=== PATIENT | male | born 2000 | race Caucasian/White ===

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

== ENCOUNTER 2020-03-30 13:45 | Emergency (ER) | payer SELFPAY ==
[~2020-03-30] VITALS: Ht 170.1 cm; Wt 61.2 kg
[2020-03-30] MEDS ORDERED: NAPROSYN500 MG PO (14:23)
[2020-03-30] MEDS ORDERED: AMOXICILLIN500 M2 PO (14:23)
== END 2020-03-30 14:34 | disposition home or self-care (01) ==
LOC: ED 13:45
DX: H66.92 Otitis media, unspecified, left ear (principal); K08.89 Other specified disorders of teeth and supporting structures

== ENCOUNTER 2021-04-04 08:47 | Emergency (ER) | payer SELFPAY ==
[~2021-04-04] VITALS: Ht 170.1 cm; Wt 65.8 kg
[~2021-04-04 08:47] MED LIST changes: +AMOXICILLIN500 M2 PO; +NAPROSYN500 MG PO
== END 2021-04-04 09:15 | disposition home or self-care (01) ==
LOC: ED 08:47
DX: A08.4 Viral intestinal infection, unspecified (principal); R11.0 Nausea; Z79.899 Other long term (current) drug therapy

== ENCOUNTER 2021-06-17 18:30 | Emergency (ER) | payer SELFPAY ==
[~2021-06-17] VITALS: Ht 170.1 cm; Wt 61.2 kg
== END 2021-06-18 00:17 | disposition left against medical advice (07) ==
LOC: ED 18:30
DX: M25.562 Pain in left knee (principal); Z53.21 Procedure and treatment not carried out due to patient leaving prior to being seen by health care provider

== ENCOUNTER 2021-07-20 09:19 | Emergency (ER) | payer SELFPAY ==
[~2021-07-20] VITALS: Ht 170.1 cm; Wt 56.7 kg
== END 2021-07-20 10:53 | disposition short-term general hospital (02) ==
LOC: ED 09:19
DX: T22.10XA Burn of first degree of shoulder and upper limb, except wrist and hand, unspecified site, initial encounter (principal); T23.101A Burn of first degree of right hand, unspecified site, initial encounter; T21.11XA Burn of first degree of chest wall, initial encounter; T20.17XA Burn of first degree of neck, initial encounter; T31.22 Burns involving 20-29% of body surface with 20-29% third degree burns; X08.8XXA Exposure to other specified smoke, fire and flames, initial encounter; Y93.89 Activity, other specified; Y92.89 Other specified places as the place of occurrence of the external cause; Y99.8 Other external cause status

== ENCOUNTER → 2021-10-06 | Outpatient (CLI) | payer OTHER | END | disposition home or self-care (01) | LOC: COVID19 16:44 | PROVIDERS: ATTEND Internal Medicine | DX: U07.1 COVID-19 (principal) ==

== ENCOUNTER 2022-03-24 13:27 | Emergency (ER) | payer SELFPAY ==
[~2022-03-24] VITALS: Ht 170.1 cm; Wt 61.2 kg
[2022-03-24] MEDS ORDERED: AVPAK AZITHROM250 M1 PO (14:07)
== END 2022-03-24 14:49 | disposition home or self-care (01) ==
LOC: ED 13:27
DX: J01.00 Acute maxillary sinusitis, unspecified (principal)

== ENCOUNTER 2022-08-20 18:16 | Emergency (ER) | payer SELFPAY ==
[~2022-08-20] VITALS: Wt 63.5 kg
[~2022-08-20 18:16] MED LIST changes: +AVPAK AZITHROM250 M1 PO
[2022-08-20] MEDS ORDERED: PENICILLIN-VK500 MG PO (20:15)
== END 2022-08-20 20:30 | disposition home or self-care (01) ==
LOC: ED 18:16
DX: K04.7 Periapical abscess without sinus (principal); F17.200 Nicotine dependence, unspecified, uncomplicated

== ENCOUNTER 2023-07-20 16:12 | Emergency (ER) | payer SELFPAY ==
[~2023-07-20] VITALS: Ht 175.2 cm; Wt 63.5 kg
[~2023-07-20 16:12] MED LIST changes: +PENICILLIN-VK500 MG PO
== END 2023-07-20 19:10 | disposition home or self-care (01) ==
LOC: ED 16:12
DX: S60.221A Contusion of right hand, initial encounter (principal); W20.8XXA Other cause of strike by thrown, projected or falling object, initial encounter; Y93.89 Activity, other specified; Y92.89 Other specified places as the place of occurrence of the external cause; Y99.8 Other external cause status

== ENCOUNTER 2024-01-17 17:37 | Emergency (ER) | payer SELFPAY ==
[~2024-01-17] VITALS: Ht 173.7 cm; Wt 65.8 kg
[2024-01-17] MEDS ORDERED: ACETAMINOPHEN 325 MG TAB PO ONE (17:50)
== END 2024-01-17 18:40 | disposition home or self-care (01) ==
LOC: ED 17:37
DX: S63.601A Unspecified sprain of right thumb, initial encounter (principal); W22.8XXA Striking against or struck by other objects, initial encounter; Y93.H2 Activity, gardening and landscaping; Y92.096 Garden or yard of other non-institutional residence as the place of occurrence of the external cause; Y99.8 Other external cause status

== ENCOUNTER 2024-02-22 20:40 | Emergency (ER) | payer SELFPAY ==
[~2024-02-22] VITALS: Ht 170.1 cm; Wt 63.5 kg
[2024-02-22] MEDS ORDERED: Albuterol Sulf/Ipratropium 3 ML VIAL NEB ONE (21:05)
[2024-02-22] MEDS ORDERED: AMOXICILLIN500 M3 PO (22:53)
[2024-02-22] MEDS ORDERED: AMOXICILLIN 500 MG CAP PO ONE (23:00)
[2024-02-22] MEDS ORDERED: PROAIR RESPICL90 MCG INH (23:00)
== END 2024-02-22 23:10 | disposition home or self-care (01) ==
LOC: ED 20:40
DX: J01.90 Acute sinusitis, unspecified (principal); Z20.822 Contact with and (suspected) exposure to COVID-19

== ENCOUNTER 2024-03-21 19:37 | Emergency (ER) | payer SELFPAY ==
[~2024-03-21] VITALS: Ht 170.1 cm; Wt 63.5 kg
[~2024-03-21 19:37] MED LIST changes: +AMOXICILLIN500 M3 PO; +PROAIR RESPICL90 MCG INH
[2024-03-21] MEDS ORDERED: Ketorolac Tromethamine 30 MG/ML VIAL IM ONE (20:10)
[2024-03-21] MEDS ORDERED: NAPROXEN250 MG PO (20:12)
== END 2024-03-21 20:30 | disposition home or self-care (01) ==
LOC: ED 19:37
DX: S93.402A Sprain of unspecified ligament of left ankle, initial encounter (principal); Z79.2 Long term (current) use of antibiotics; Z79.899 Other long term (current) drug therapy; X50.1XXA Overexertion from prolonged static or awkward postures, initial encounter; Y93.89 Activity, other specified; Y92.89 Other specified places as the place of occurrence of the external cause; Y99.8 Other external cause status

== ENCOUNTER 2024-11-12 16:14 | Emergency (ER) | payer MEDICAID ==
[~2024-11-12] VITALS: Ht 170.1 cm; Wt 63.5 kg
[~2024-11-12 16:14] MED LIST changes: +NAPROXEN250 MG PO
[2024-11-12] MEDS ORDERED: AMOX-CLAV 875-1 EACH PO (17:35)
[2024-11-12] MEDS ORDERED: Acetaminophen/Hydrocodone HP 10/325 PO ONE (17:35)
[2024-11-12] MEDS ORDERED: MELOXICAM15 MG PO (17:35)
[2024-11-12] MEDS ORDERED: Amoxicillin/Clavulanate Pota 875 MG TAB PO ONE (17:35)
== END 2024-11-12 17:54 | disposition home or self-care (01) ==
LOC: ED 16:14
DX: S39.011A Strain of muscle, fascia and tendon of abdomen, initial encounter (principal); K04.7 Periapical abscess without sinus; R22.0 Localized swelling, mass and lump, head; F17.210 Nicotine dependence, cigarettes, uncomplicated; X50.0XXA Overexertion from strenuous movement or load, initial encounter; Y93.89 Activity, other specified; Y92.89 Other specified places as the place of occurrence of the external cause; Y99.8 Other external cause status

== ENCOUNTER 2025-01-23 20:19 | Emergency (ER) | payer MEDICAID ==
[~2025-01-23] VITALS: Ht 170.1 cm; Wt 63.5 kg
[~2025-01-23 20:19] MED LIST changes: +AMOX-CLAV 875-1 EACH PO; +MELOXICAM15 MG PO
[2025-01-23] MEDS ORDERED: CYCLOBENZAPRINE10 MG PO (20:36)
[2025-01-23] MEDS ORDERED: Ketorolac Tromethamine 60 MG/2 ML VIAL IM ONE (20:40)
[2025-01-23] MEDS ORDERED: Cyclobenzaprine Hydrochlorid 10 MG TAB PO ONE (20:40)
== END 2025-01-23 20:41 | disposition home or self-care (01) ==
LOC: ED 20:19
DX: S39.011A Strain of muscle, fascia and tendon of abdomen, initial encounter (principal); X50.0XXA Overexertion from strenuous movement or load, initial encounter; Y93.89 Activity, other specified; Y92.89 Other specified places as the place of occurrence of the external cause; Y99.8 Other external cause status

== ENCOUNTER 2025-03-15 18:06 | Emergency (ER) | payer MEDICAID ==
[~2025-03-15] VITALS: Ht 170.1 cm; Wt 63.5 kg
[~2025-03-15 18:06] MED LIST changes: +CYCLOBENZAPRINE10 MG PO
[2025-03-15] MEDS ORDERED: ACETAMINOPHEN 325 MG TAB PO ONE (19:15)
[2025-03-15] MEDS ORDERED: IBUPROFEN 600 MG TAB PO ONE (19:15)
[2025-03-15] MEDS ORDERED: BENZONATATE100 M1 PO (21:17)
== END 2025-03-15 21:21 | disposition home or self-care (01) ==
LOC: ED 18:06
DX: B34.9 Viral infection, unspecified (principal); Z79.899 Other long term (current) drug therapy

== ENCOUNTER 2025-04-25 20:16 | Emergency (ER) | payer MEDICAID ==
[~2025-04-25] VITALS: Ht 170.1 cm; Wt 63.5 kg
[~2025-04-25 20:16] MED LIST changes: +BENZONATATE100 M1 PO
[2025-04-25 22:49] LABS: BASO # 0.0 10*3/uL (0.0-0.1); BASO % 0.3 % (0.0-1.0); EOS # 0.2 10*3/uL (0.0-0.4); EOS % 1.4 % (1.0-4.0); MEAN CELL VOLUME 86.3 fl (80.0-94.0); MEAN CORPUSCULAR HGB 28.3 pg (27.0-31.0); MEAN PLATELET VOLUME 11.5 fl (9.6-12.3); MONO # 1.0 10*3/uL (0.1-1.0); MONO % 7.8 % (3.0-9.0); NEUT # 8.0 10*3/uL (2.3-7.9); NEUT % 64.5 % (47.0-73.0); NUCLEATED RED BLOOD CELL 0.0 % (0.0-0.0); NUCLEATED RED BLOOD CELL 0.0 10*3/uL (0.0-0.0); PLATELET COUNT AUTOMATED 228 10*3/uL (130-400); RED CELL DISTRI WIDTH 12.8 % (0-14.5)
[2025-04-25] MEDS ORDERED: IOHEXOL 300 MG/ML 100 ML VIAL IV ONE (22:55)
[2025-04-25 23:08] LABS: BUN 11 mg/dl (9-23)
[2025-04-26] MEDS ORDERED: AMOX-CLAV 875-1 EACH PO (02:09)
== END 2025-04-26 02:36 | disposition home or self-care (01) ==
LOC: ED 20:16
PROVIDERS: Emergency Medicine
DX: I88.9 Nonspecific lymphadenitis, unspecified (principal); F17.200 Nicotine dependence, unspecified, uncomplicated